=== PATIENT | male | born 1930 | race Caucasian/White ===

== ENCOUNTER → 2020-10-01 | Day surgery (SDC) | payer OTHER ==
[~2020-10-01] VITALS: Ht 167.6 cm; Wt 72.6 kg
[~2020-10-01] MED LIST: AMITRIPTYLINE H10 M3 PO; ASPIR 8181 M1 PO; CALCIUM 500 +1 EAC5 PO; FASLODEX250 MG/5 M IM; IMODIUM A-D2 M1 PO; LOTREL 5-10 MG1 EACH PO; LUPRON DEPOT3.75 M2 IM; MYRBETRIQ25 MG PO; MYRBETRIQ50 MG PO; NEXIUM40 MG PO; NORVASC5 MG PO; OMEPRAZOLE40 MG PO; RESTASIS1 EACH OPHTHALMIC; SERTRALINE HCL25 M1 PO; VITAMIN B-121000 MC2 SUBLING; XGEVA120 MG/1.7 IM
--- NOTE | ~2020-10-01 | O ---
[facility] [place] [address] OPERATIVE REPORT Name: QIANA JAFFE Room #: REG [facility]#: [id number] Admission: 10/01/20 Attend Phys: Jason Wetzel MD Discharge: Date of : [birth year] Report #: [id number] THIS REPORT FOR: cc: Alvaro Mcnamara MD, David A. MD White, William L. 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 POSTOPERATIVE DIAGNOSIS: Bilateral nasal lacrimal duct obstruction. OPERATION PERFORMED: Bilateral endoscopic ballooon dacryoplasty with silicone intubation. ANESTHESIA: General. COMPLICATIONS: None. INDICATIONS FOR SURGERY: This patient has acquired bilateral nasal lacrimal duct stenosis with chronic tearing and discharge, both eyes. The current procedures are undertaken in order to improve the patient's level of lacrimal outflow and visual clarity. Informed consent was obtained to include but not limited to the potential risks for damage to the eye, loss of vision, bleeding, infection, failure to improve the problem and need for further surgery. DESCRIPTION OF OPERATION: The patient was taken to the operating room, where general anesthesia was administered. The medial canthi were anesthetized with 2% Xylocaine with epinephrine mixed with equal parts of 0.75% Marcaine with Wydase. The lateral gibbs of the nose were then bilaterally injected with the same anesthetic mixture. The nose was packed with Afrin-soaked cottonoids. The patient was then prepped and draped in the usual sterile fashion. A moist compress was placed on the left eye while attention was turned to the right side. The superior and inferior puncta were then atraumatically dilated with a punctum dilator. A size 0 lacrimal probe was then passed through the superior canalicular system and through the stenosed nasal lacrimal duct. The nasal [facility] [address] [place] [address] OPERATIVE REPORT Name: QIANA JAFFE TAYA Room #: REG [facility].#: [id number] Admission: 10/01/20 Attend Phys: Jason Wetzel MD Discharge: Date of : [birth year] Report #: [id number] packing was removed and the endoscope was brought into the field. The inferior turbinate was gently infractured with a [place] periosteal elevator to allow visualization of the inferior meatus in the area of the opening of the valve of Hasner in the nose. The probe was found and confirmed to be in the proper location. It was removed and subsequently replaced with a size 1 and a size 2 Portillo probe, which also had their passage confirmed endoscopically to be in the proper location. A 3 by 15 LacriCatheter was lubricated with a small quantity of ophthalmic antibiotic ointment. The LacriCatheter was then passed through the superior canalicular system and the stenosed nasal lacrimal duct. The LacriCatheter was confirmed to be in the proper location endoscopically intranasally in the inferior meatus. The LacriCatheter was inflated to 9 atmospheres for 90 seconds and deflated. The catheter was then inflated to 9 atmospheres for 60 seconds. The catheter was then withdrawn to the proximal black ring. It was then inflated to 9 atmospheres for 90 seconds. The balloon was then deflated and reinflated to 9 atmospheres for 60 seconds. The balloon was the aspirated and withdrawn to the distal black ring. It was then inflated to 9 atmospheres for 90 seconds. The balloon was deflated and reinflated to 9 atmospheres for 60 seconds. The balloon was then deflated and vigorously aspirated as it was withdrawn through the superior canalicular system. A Scherer tube was then passed through the superior canalicular system and out the dilated duct. The Scherer tube was secured under the inferior turbinate in the inferior meatus with a Scherer hook and retrieved endoscopically. The Scherer tube was then passed through the inferior canalicular system in a similar fashion and was retrieved endoscopically in the nose atraumatically. The Scherer tube was then secured to itself with 3 square throws and then to the lateral wall of the nose with a 5-0 Prolene suture. Attention was then turned to the other side, where the same procedure was performed. Antibiotic steroid drops were then placed in both eyes. A small quantity of ophthalmic antibiotic ointment was placed on the Scherer tube. The patient was then transported to the recovery area with no anesthetic or operative complications being noted. MD BARBRA Henning/GILLIAN/BITA By: [id number] Jason Wetzel MD /nt
[2020-10-01 09:44] VITALS: BP 1452/63
== END | disposition home or self-care (01) ==
LOC: OR 08:13
PROVIDERS: ATTEND Ophthalmology
DX: H04.553 Acquired stenosis of bilateral nasolacrimal duct (principal); I10 Essential (primary) hypertension; K21.9 Gastro-esophageal reflux disease without esophagitis; Z98.890 Other specified postprocedural states; Z79.899 Other long term (current) drug therapy; Z85.3 Personal history of malignant neoplasm of breast; Z87.891 Personal history of nicotine dependence; Z85.46 Personal history of malignant neoplasm of prostate; Z85.830 Personal history of malignant neoplasm of bone; Z98.41 Cataract extraction status, right eye; Z98.42 Cataract extraction status, left eye
CPT/HCPCS: 50010; 50101; 50261; 50386; 50398; 51777; 56528; 62110; 62900; 70005